=== PATIENT | female | born 2005 | race Caucasian/White ===

== ENCOUNTER 2025-08-31 10:19 | Emergency (ER) | payer OTHER ==
[~2025-08-31] VITALS: Ht 165.1 cm; Wt 79.5 kg
[2025-08-31] MEDS ORDERED: LIDO5TD TOP (10:27)
[2025-08-31] MEDS ORDERED: ACET-683 PO (10:27)
[2025-08-31 12:03] VITALS: BP 108/55; TEMP 97.9; O2SAT 100
== END 2025-08-31 12:05 | disposition home or self-care (01) ==
LOC: M ED 10:19
DX: J06.9 Acute upper respiratory infection, unspecified (principal); J00 Acute nasopharyngitis [common cold]